=== PATIENT | female | born 1980 | race African-American/Black ===

== ENCOUNTER 2017-07-18 17:48 | Emergency (ER) | payer OTHER ==
[2017-07-18 18:07] VITALS: BP 111/65; PULSE 91; TEMP 98.5; BMI 18.0
[2017-07-18] MEDS ORDERED: IBUPROFEN 600 MG TABLET (FP) PO ONE ×2 (18:37→19:12)
--- NOTE | 2017-07-18 18:52 | PDOC ---
History of Present Illness - General Chief Complaint: Cold Symptoms Stated Complaint: COLD SYMPTOMS Time Seen by Provider: 07/18/17 18:14 History Source: Patient Exam Limitations: No Limitations - History of Present Illness Initial Comments: 07/18/17 18:50 36 yr female with 2 days chills cough ear pain sore throat, tactile fever taking motrin at home with relief. Pt has no medical history or allergies. Severity: reports: mild Possible Cause: Yes: no prior episodes Past History - Past Medical History Allergies/Adverse Reactions: Allergies Allergy/AdvReac Type Severity Reaction Status Date / Time Penicillins Allergy Severe Rash Verified 07/18/17 18:05 SEAFOOD Allergy Severe Rash Uncoded 07/18/17 18:05 Home Medications: Ambulatory Orders NK [No Known Home Medication] 07/18/17 Asthma: No Cancer: No Cardiac Disorders: No Diabetes: No HTN: No Seizures: No Thyroid Disease: No - Suicide/Smoking/Psychosocial Hx Smoking History: Never smoked Have you smoked in the past 12 months: No Hx Alcohol Use: No Drug/Substance Use Hx: No Hx Substance Use Treatment: No Respiratory Specific PMHX - Complaint Specific PMHX Angina: No Bronchitis: No Pneumonia: No Pulmonary Embolus: No TB (Tuberculosis): No Review of Systems - Review of Systems Able to Perform ROS?: Yes Is the patient limited [place] proficient: No Constitutional: No: Symptoms Reported HEENTM: Yes: See HPI Respiratory: Yes: See HPI *Physical Exam - Vital Signs Last Vital Signs Temp Pulse Resp BP Pulse Ox 98.5 F 91 H 18 111/65 100 07/18/17 18:05 07/18/17 18:05 07/18/17 18:05 07/18/17 18:05 07/18/17 18:05 - Physical Exam General Appearance: Yes: Nourished, Appropriately Dressed HEENT: positive: EOMI, AKI Neck: positive: Supple. negative: Tender Respiratory/Chest: positive: Lungs Clear, Normal Breath Sounds. negative: Chest Tender Cardiovascular: positive: Regular Rhythm, Regular Rate Gastrointestinal/Abdominal: positive: Normal Bowel Sounds, Soft Musculoskeletal: positive: Normal Inspection Extremity: positive: Normal Capillary Refill, Normal Inspection, Normal Range of Motion Integumentary: positive: Normal Color, Dry, Warm Neurologic: positive: Fully Oriented, Alert, Normal Mood/Affect, Normal Response , Motor Strength 5/5 Medical Decision Making - Medical Decision Making 07/18/17 18:52 cc: body aches chills sore throat, ear ache non toxic vitals stable will check strep and flu , UA 07/18/17 19:19 negative results will dc home with supportive care *DC/Admit/Observation/Transfer Diagnosis at time of Disposition: Viral respiratory illness - Discharge Dispostion Disposition: HOME Condition at time of disposition: Good - Referrals Referrals: Megan Abel MD [Primary Care Provider] - - Patient Instructions Additional Instructions: use the flonase nasal spray to help with congestion, sinus tenderness take motrin or tylenol as directed for body aches and pain get pleanty of rest drink 2 liters of water a day increase vitamin c and zinc to help boost immune system follow with your doctor in 2-3 days if no improvement or worse - Post Discharge Activity Forms/Work/School Notes: Back to Work
[2017-07-18 19:02] LABS: URINE APPEARANCE CLEAR; URINE BILIRUBIN NEGATIVE (NEGATIVE); URINE BLOOD NEGATIVE (NEGATIVE); URINE COLOR STRAW; URINE GLUCOSE (UA) NEGATIVE (NEGATIVE); URINE KETONE NEGATIVE (NEGATIVE); URINE NITRITE NEGATIVE (NEGATIVE); URINE PROTEIN NEGATIVE (NEGATIVE); URINE UROBILINOGEN NEGATIVE mg/dL (0.2-1.0)
[2017-07-18 21:16] LABS: URINE LEUK ESTERASE 3+ (NEGATIVE)
[2017-07-18 22:30] LABS: URINE BACTERIA FEW /hpf (NEGATIVE); URINE WBC 20-40 (3-5)
== END 2017-07-18 19:25 | disposition home or self-care (01) ==
LOC: JERFT 17:48
DX: J06.9 Acute upper respiratory infection, unspecified (principal); B97.89 Other viral agents as the cause of diseases classified elsewhere
CPT/HCPCS: 81003; 81015; 84703; 87070; 87430; 87804; 99281-25

== ENCOUNTER 2021-06-09 10:02 | Emergency (ER) | payer OTHER ==
[2021-06-09 10:10] VITALS: BP 100/64; PULSE 64; TEMP 98.1; BMI 21.1
[2021-06-09] MEDS ORDERED: KETOROLAC TROMETHAMINE 30 MG/1 ML VIAL IM ONE (11:12)
[2021-06-09] MEDS ORDERED: METHOCARBAMOL 500 MG TABLET PO ONE (11:12)
[2021-06-09] MEDS ORDERED: KETOROLAC TROMETHAMINE 30 MG/1 ML VIAL ONE (11:19)
[2021-06-09] MEDS ORDERED: METHOCARBAMOL 500 MG TABLET ONE (11:19)
== END 2021-06-09 11:53 | disposition home or self-care (01) ==
LOC: JERFT 10:02
PROC: 3E0233Z Introduction of Anti-inflammatory into Muscle, Percutaneous Approach (ICD-10-PCS; principal; 2021-06-09)
DX: M62.838 Other muscle spasm (principal)
CPT/HCPCS: 96372; 99283-25

== ENCOUNTER 2021-08-26 23:08 | Emergency (ER) | payer OTHER ==
[2021-08-26 23:46] VITALS: TEMP 98.6; BMI 21.1
[2021-08-27] MEDS ORDERED: SODIUM CHLORIDE 0.9% 500 ML INFUS.BAG IV ONE (01:48)
[2021-08-27] MEDS ORDERED: ACETAMINOPHEN 1000 MG/100 ML VIAL IVPB ONE (01:48)
[2021-08-27] MEDS ORDERED: ACETAMINOPHEN INJECTION 100 ML IVPB ONE (02:06)
[2021-08-27 02:42] LABS: BASO % 0.1 % (0-2.0); HEMATOCRIT 30.9 % (32.4-45.2); LYMPH % 3.5 % (8-40); MCH 24.1 pg (25.7-33.7); MCHC 32.2 g/dl (32.0-36.0); MEAN CELL VOLUME 74.9 fl (80-96); MEAN PLT VOLUME 8.1 fl (7.5-11.1); MONO % 8.3 % (3.8-10.2); NEUT % 88.1 % (42.8-82.8); PLATELET COUNT 174 10^3/uL (134-434); RBC 4.13 M/mm3 (3.60-5.2); RDW 17.4 % (11.6-15.6); WHITE BLOOD COUNT 12.1 K/mm3 (4.0-10.0)
[2021-08-27 02:45] LABS: EPI CELLS 15 /uL (0-25.1); HYALINE CASTS 6 /uL (0-3.1); URINE APPEARANCE TURBID; URINE BACTERIA >9,000 /uL (0-1359); URINE BILIRUBIN NEGATIVE (NEGATIVE); URINE COLOR YELLOW; URINE GLUCOSE (UA) NEGATIVE (NEGATIVE); URINE KETONE 3+ (NEGATIVE); URINE LEUK ESTERASE 3+ (NEGATIVE); URINE NITRITE POSITIVE (NEGATIVE); URINE PROTEIN 3+ (NEGATIVE); URINE WBC 11813 /uL (0-25.8)
[2021-08-27] MEDS ORDERED: CEFTRIAXONE 1 GM in DEXTROSE 5%-WATER - 50 ML IVPB ONE (02:51)
[2021-08-27] MEDS ORDERED: CEFTRIAXONE 1 GM/50 ML BAG ONE (03:06)
[2021-08-27 03:08] LABS: ALBUMIN 3.5 g/dl (3.4-5.0); BLOOD UREA NITROGEN 15.4 mg/dL (7-18); CALCIUM 8.6 mg/dL (8.5-10.1)
[2021-08-27 03:11] LABS: CREATININE 0.8 mg/dL (0.55-1.3)
[2021-08-27 03:13] LABS: BILIRUBIN,TOTAL 0.7 mg/dL (0.2-1); TOT PROT 8.1 g/dl (6.4-8.2)
[2021-08-27] MEDS ORDERED: KETOROLAC TROMETHAMINE 30 MG/1 ML VIAL IVPUSH ONE (03:29)
[2021-08-27] MEDS ORDERED: KETOROLAC TROMETHAMINE 30 MG/1 ML VIAL ONE (03:55)
[2021-08-27 04:29] VITALS: BP 122/80; PULSE 75
[2021-08-27 07:23] LABS: URINE RBC 559.1 /uL (0-23.9); YEAST NONE SEEN (NEGATIVE)
== END 2021-08-27 04:28 | disposition home or self-care (01) ==
LOC: JER 23:08
PROC: 3E033GC Introduction of Other Therapeutic Substance into Peripheral Vein, Percutaneous Approach (ICD-10-PCS; principal; 2021-08-26)
DX: N12 Tubulo-interstitial nephritis, not specified as acute or chronic (principal)
CPT/HCPCS: 36415; 71046-TC-FY; 80053; 81003; 84703; 85025; 87086; 87186; 99284-25; C9803; J0131; U0003; U0005

== ENCOUNTER 2023-06-28 10:17 | Emergency (ER) | payer OTHER ==
[2023-06-28 10:28] VITALS: BP 102/62; PULSE 64; RESP 18; TEMP 97.9; BMI 21.6
[2023-06-28] MEDS ORDERED: SODIUM CHLORIDE 0.9% 500 ML INFUS.BAG IV ONE (11:37)
[2023-06-28] MEDS ORDERED: ACETAMINOPHEN 1000 MG/100 ML BAG IVPB ONE (11:37)
[2023-06-28] MEDS ORDERED: LIDOCAINE 5% TOPICAL PATCH TP ONE (11:43)
[2023-06-28] MEDS ORDERED: ACETAMINOPHEN INJECTION 100 ML IVPB ONE ×2 (12:00→12:03)
[2023-06-28] MEDS ORDERED: LIDOCAINE 4% PATCH TP ONE (12:20)
[2023-06-28 12:25] LABS: BASO % 0.3 % (0-2.0); HEMATOCRIT 32.2 % (32.4-45.2); HEMOGLOBIN 10.4 GM/dL (10.7-15.3); MCH 24.4 pg (25.7-33.7); MCHC 32.3 g/dl (32.0-36.0); MEAN CELL VOLUME 75.7 fl (80-96); MEAN PLT VOLUME 8.4 fl (7.5-11.1); NEUT % 59.7 % (42.8-82.8); PLATELET COUNT 190 10^3/uL (134-434); RBC 4.25 M/mm3 (3.60-5.2); RDW 16.7 % (11.6-15.6)
[2023-06-28 12:33] LABS: POTASSIUM 4.1 mmol/L (3.5-5.1)
[2023-06-28 12:35] LABS: CALCIUM 8.6 mg/dL (8.5-10.1)
[2023-06-28 12:39] LABS: CREATININE 0.7 mg/dL (0.55-1.3); PHOSPHOROUS 3.2 mg/dL (2.5-4.9)
[2023-06-28 12:40] LABS: BILIRUBIN,TOTAL 0.6 mg/dL (0.2-1); TOT PROT 7.6 g/dl (6.4-8.2)
[2023-06-28 12:53] LABS: PH,URINE 6.5 (5.0-8.0); URINE APPEARANCE CLEAR; URINE BILIRUBIN NEGATIVE (NEGATIVE); URINE COLOR YELLOW; URINE GLUCOSE (UA) NEGATIVE (NEGATIVE); URINE KETONE NEGATIVE (NEGATIVE); URINE LEUK ESTERASE NEGATIVE (NEGATIVE); URINE NITRITE NEGATIVE (NEGATIVE); URINE PROTEIN TRACE (NEGATIVE)
[2023-06-28] MEDS ORDERED: KETOROLAC TROMETHAMINE 30 MG/1 ML VIAL IVPUSH ONE (13:30)
[2023-06-28] MEDS ORDERED: KETOROLAC TROMETHAMINE 30 MG/1 ML VIAL ONE (14:08)
[2023-06-28] MEDS ORDERED: LIDOCAINE PATCH REMOVAL MC ONE (22:00)
== END 2023-06-28 15:20 | disposition home or self-care (01) ==
LOC: JERFT 10:17 → JER 10:17 → JERFT 15:20
PROC: 3E033NZ Introduction of Analgesics, Hypnotics, Sedatives into Peripheral Vein, Percutaneous Approach (ICD-10-PCS; principal; 2023-06-28)
PROC: 3E0333Z Introduction of Anti-inflammatory into Peripheral Vein, Percutaneous Approach (ICD-10-PCS; 2023-06-28)
DX: M54.50 Low back pain, unspecified (principal); S39.012A Strain of muscle, fascia and tendon of lower back, initial encounter; R11.0 Nausea; R10.30 Lower abdominal pain, unspecified; M25.551 Pain in right hip; M25.552 Pain in left hip; X58.XXXA Exposure to other specified factors, initial encounter
CPT/HCPCS: 36415; 72100-TC-FY; 73502-TC-RT-FY; 80053; 81003; 84100; 84703; 85025; 87086; 96374; 96375; 99284-25